=== PATIENT | female | born 1990 | race Caucasian/White ===

== ENCOUNTER 2023-01-19 17:11 | Emergency (ER) | payer OTHER, SELFPAY ==
[2023-01-19 17:34] VITALS: BP 136/90; PULSE 98; RESP 20; TEMP 36.7; O2SAT 97
[2023-01-19] MEDS: ONDANSETRON 2 MG/ML inj 4 MG IVP (19:54)
--- NOTE | 2023-01-19 20:00 | ED.GENADULT ---
HPI - General Adult General Chief complaint: Urogenital Problems, Female Stated complaint: Pelvic Pain Time Seen by Provider: 01/19/23 19:59 History of Present Illness HPI narrative: c/o lower ABD pain that started about an hour ago. She states that she has had this in the past and was prescribed control and was told it was hormonal. She didn't like taking it so she stopped because the pain is gone. had vasectomy so minimal chance of . She states that she started bleeding today and it could be here period. states that bleeding is light. 32-year-old woman presenting to the emergency department with complaint of intense lower abdominal pain beginning about an hour prior to presentation the Emergency Department. It sounds as though there has been some question raised of endometriosis in the past. Have been prescribed hormonal treatments in the past. Has not noticed that she was having dysuria. Has been having some light vaginal bleeding. Might be midcycle. Has been vomiting but this might be because of the pain. No fever. No diarrhea. Related Data Previous Rx's Medication Instructions Recorded hydrocodone 5 mg-acetaminophen 325 1 - 2 tab PO TID PRN pain #8 tabs 01/20/23 mg tablet ondansetron 4 mg disintegrating 4 mg PO Q4-6H PRN nausea and 01/20/23 tablet vomiting #12 tabs Allergies Allergy/AdvReac Type Severity Reaction Status Date / Time No Known Drug Allergies Allergy Verified 09/24/22 12:15 Review of Systems Status of ROS: Reports: 6 or more systems reviewed and unremarkable except as noted in History and below [facility] Social History Smoking Status: Never smoker Exam Narrative: Exam Narrative: Pleasant. Is restless in apparent marked discomfort. Oropharynx is sticky. Breathing easily though. Lungs appear to be clear. Heart in an elevated rate and regular rhythm. Abdomen is soft and quite tender through the low pelvis, by adnexal areas right maybe more than right. No peritoneal signs. Extremities well perfused without edema. Const: Vital Signs, click to edit/add: Vital Signs - 24 hr 01/19/23 17:34 Temperature 98.1 F Pulse Rate [Pulse Oximeter] 98 Respiratory Rate 20 Blood Pressure [Ri ght Upper Arm] 136/90 H Pulse Oximetry 97 Oxygen Delivery Me thod Room Air Documenting provider has reviewed patient's vital signs: yes Course Vital Signs Vital signs: Initial Vital Signs Temperature 98.1 F 01/19/23 17:34 Temperature Source Temporal Artery Scan 01/19/23 17:34 Pulse Rate 98 01/19/23 17:34 Pulse Rhythm Regular 01/19/23 17:34 Respiratory Rate 20 01/19/23 17:34 Blood Pressure 136/90 H 01/19/23 17:34 Blood Pressure Mean 105 01/19/23 17:34 Blood Pressure Position Sitting 01/19/23 17:34 Pulse Oximetry 97 01/19/23 17:34 Oxygen Delivery Method Room Air 01/19/23 17:34 Vital Signs Temperature 98.1 F 01/19/23 17:34 Pulse Rate 98 01/19/23 17:34 Respiratory Rate 20 01/19/23 17:34 Blood Pressure 136/90 H 01/19/23 17:34 Pulse Oximetry 97 01/19/23 17:34 Oxygen Delivery Method Room Air 01/19/23 17:34 Temperature 98.1 F 01/19/23 17:34 Pulse Rate 67 01/20/23 00:12 Respiratory Rate 20 01/19/23 17:34 Blood Pressure 116/68 01/20/23 00:12 Pulse Oximetry 99 01/20/23 00:12 Oxygen Delivery Method Room Air 01/20/23 00:12 Medical Decision Making MDM Narrative Medical decision making narrative: This certainly could be dysmenorrhea, ovarian torsion or cyst of some sort, extension of gastritis/enteritis. Appendicitis diverticulitis. Does not appear to be constipated. In particular she would like treatment for nausea. Would like to defer pain medication initially. Ordered Zofran. IV and fluids. Labs been requested. The cool move ahead though with an ultrasound as well given her history of what sounds to have been some endometriosis concerns in the past. Re-evaluation nausea is improved but she would appreciate some pain medication. Toradol and some morphine for more rapid action anticipation of ultrasound. Improved. Able to rest in the emergency department. Ultimately she felt comfortable enough to try to go home. Somewhat surprising finding of marked elevation in white count. INDICATION: Pelvic pain TECHNIQUE: Ultrasound pelvis transvaginal for better assessment or to better visualize the endometrium. Real-time sonographic images with spectral and color Doppler imaging of the ovaries were obtained. COMPARISON: None FINDINGS: Uterus: 8.1 x 4.4 x 5 cm. Normal echotexture of the myometrium. No masses. Endometrium: Transvaginal imaging was performed to better evaluate the endometrium. 7 mm in thickness. No sign of endometrial mass or fluid. Right ovary: 3.5 x 2.1 x 3.0 cm. No ovarian or adnexal masses. Normal arterial and venous blood flow. Left ovary: 4.5 x 2.7 x 3.3 cm. There is a complex lesion on the left ovary measuring 1.9 x 1.3 x 1.7 cm. Normal arterial and venous blood flow. Cul-de-sac: No significant free fluid. IMPRESSION: 1.9 cm complex lesion on the left ovary likely represents a hemorrhagic cyst. Remainder of the exam is normal. No evidence for ovarian torsion. On reexamination I do not think there is appendicitis here. Perhaps more gastritis with a setting of a hemorrhagic cyst explain more the pain. Will need to be rechecking this white count. See patient discharge plan Medical Records Medical records reviewed: Yes I reviewed the patient's medical records Lab Data Lab results reviewed: Yes I reviewed the patient's lab results Labs: Lab Results 01/19/23 01/19/23 01/19/23 Range/Units 19:37 19:37 19:37 WBC 19.51 H (4.50-11.00) K/uL RBC 5.14 (4.00-5.20) m/uL Hgb 14.8 (12.0-16.0) gm/dL Hct 42.8 (33.0-51.0) % MCV 83 (80-100) fL MCH 29 (26-34) pg MCHC 35 (32-36) gm/dL RDW Coeff of Raine 11.8 (11.5-15.5) % Plt Count 389 (140-440) K/uL Neut % (Auto) 84.9 H (42.0-72.0) % Lymph % (Auto) 10.9 L (20-44) % [place] % (Auto) 3.6 (0.0-11.0) % Eos % (Auto) 0.3 (0.0-7.0) % Baso % (Auto) 0.1 (0.0-3.0) % Neut # (Auto) 16.60 H (1.7-7.0) K/uL Lymph # (Auto) 2.10 (0.90-2.90) K/uL [place] # (Auto) 0.70 (0.00-0.90) K/UL Eos # (Auto) 0.10 (0.00-0.50) K/uL Baso # (Auto) 0.00 (0.00-0.30) K/uL Abs Immat Gran (auto) 0.00 (0.00-0.30) K/uL Imm/Tot Granulo (auto) 0.2 % Sodium 139 (135-149) mmol/L Potassium 3.7 (3.6-5.1) mmol/L Chloride 103 (96-114) mmol/L Carbon Dioxide 24 (20-32) mmol/L Anion Gap 12 (7-15) mEq/L BUN 18 (5-24) mg/dL Creatinine 0.5 (0.5-1.5) mg/dL Estimated GFR 128 ml/min Glucose 100 (60-115) mg/dL Calcium 10.2 (8.4-10.6) mg/dL Total Bilirubin 0.5 Cancelled (0.1-1.5) mg/dL Direct Bilirubin 0.1 Cancelled (0.0-0.5) mg/dL AST 31 (12-35) U/L ALT (4-35) U/L Alkaline Phosphatase (40-150) U/L C-Reactive Protein (0.5-1.0) mg/dL Total Protein (6.0-8.3) g/dL Albumin (3.3-5.0) g/dL Urine Color (Yellow) Urine Appearance (Clear) Urine pH (5.0-8.5) Ur Specific [place] (1.000-1.030) Urine Protein (Negative) Urine Glucose (UA) (Negative) Urine Ketones (Negative) Urine Blood (Negative) Urine Nitrite (Negative) Urine Bilirubin (Negative) Urine Urobilinogen (0.2-1.0) Ur Leukocyte Esterase (Negative) Urine RBC (0-2) Urine WBC (0-5) Ur Squamous Epith Cells (None-Few) Urine Bacteria (None) Urine Mucus (None) Urine HCG, Qual (Negative) 01/19/23 01/19/23 01/19/23 Range/Units 19:37 19:37 19:37 WBC (4.50-11.00) K/uL RBC (4.00-5.20) m/uL Hgb (12.0-16.0) gm/dL Hct (33.0-51.0) % MCV (80-100) fL MCH (26-34) pg MCHC (32-36) gm/dL RDW Coeff of Raine (11.5-15.5) % Plt Count (140-440) K/uL Neut % (Auto) (42.0-72.0) % Lymph % (Auto) (20-44) % [place] % (Auto) (0.0-11.0) % Eos % (Auto) (0.0-7.0) % Baso % (Auto) (0.0-3.0) % Neut # (Auto) (1.7-7.0) K/uL Lymph # (Auto) (0.90-2.90) K/uL [place] # (Auto) (0.00-0.90) K/UL Eos # (Auto) (0.00-0.50) K/uL Baso # (Auto) (0.00-0.30) K/uL Abs Immat Gran (auto) (0.00-0.30) K/uL Imm/Tot Granulo (auto) % Sodium (135-149) mmol/L Potassium (3.6-5.1) mmol/L Chloride (96-114) mmol/L Carbon Dioxide (20-32) mmol/L Anion Gap (7-15) mEq/L BUN (5-24) mg/dL Creatinine (0.5-1.5) mg/dL Estimated GFR ml/min Glucose (60-115) mg/dL Calcium (8.4-10.6) mg/dL Total Bilirubin (0.1-1.5) mg/dL Direct Bilirubin (0.0-0.5) mg/dL AST Cancelled (12-35) U/L ALT 26 Cancelled (4-35) U/L Alkaline Phosphatase 141 Cancelled (40-150) U/L C-Reactive Protein 1.2 H (0.5-1.0) mg/dL Total Protein 9.1 H (6.0-8.3) g/dL Albumin (3.3-5.0) g/dL Urine Color (Yellow) Urine Appearance (Clear) Urine pH (5.0-8.5) Ur Specific [place] (1.000-1.030) Urine Protein (Negative) Urine Glucose (UA) (Negative) Urine Ketones (Negative) Urine Blood (Negative) Urine Nitrite (Negative) Urine Bilirubin (Negative) Urine Urobilinogen (0.2-1.0) Ur Leukocyte Esterase (Negative) Urine RBC (0-2) Urine WBC (0-5) Ur Squamous Epith Cells (None-Few) Urine Bacteria (None) Urine Mucus (None) Urine HCG, Qual (Negative) 01/19/23 01/19/23 01/19/23 Range/Units 19:37 19:37 20:16 WBC (4.50-11.00) K/uL RBC (4.00-5.20) m/uL Hgb (12.0-16.0) gm/dL Hct (33.0-51.0) % MCV (80-100) fL MCH (26-34) pg MCHC (32-36) gm/dL RDW Coeff of Raine (11.5-15.5) % Plt Count (140-440) K/uL Neut % (Auto) (42.0-72.0) % Lymph % (Auto) (20-44) % [place] % (Auto) (0.0-11.0) % Eos % (Auto) (0.0-7.0) % Baso % (Auto) (0.0-3.0) % Neut # (Auto) (1.7-7.0) K/uL Lymph # (Auto) (0.90-2.90) K/uL [place] # (Auto) (0.00-0.90) K/UL Eos # (Auto) (0.00-0.50) K/uL Baso # (Auto) (0.00-0.30) K/uL Abs Immat Gran (auto) (0.00-0.30) K/uL Imm/Tot Granulo (auto) % Sodium (135-149) mmol/L Potassium (3.6-5.1) mmol/L Chloride (96-114) mmol/L Carbon Dioxide (20-32) mmol/L Anion Gap (7-15) mEq/L BUN (5-24) mg/dL Creatinine (0.5-1.5) mg/dL Estimated GFR ml/min Glucose (60-115) mg/dL Calcium (8.4-10.6) mg/dL Total Bilirubin (0.1-1.5) mg/dL Direct Bilirubin (0.0-0.5) mg/dL AST (12-35) U/L ALT (4-35) U/L Alkaline Phosphatase (40-150) U/L C-Reactive Protein (0.5-1.0) mg/dL Total Protein Cancelled (6.0-8.3) g/dL Albumin 5.1 H Cancelled (3.3-5.0) g/dL Urine Color Yellow (Yellow) Urine Appearance Clear (Clear) Urine pH 5.5 (5.0-8.5) Ur Specific [place] >= 1.030 (1.000-1.030) Urine Protein Negative (Negative) Urine Glucose (UA) Negative (Negative) Urine Ketones 4+ A (Negative) Urine Blood 3+ A (Negative) Urine Nitrite Negative (Negative) Urine Bilirubin Negative (Negative) Urine Urobilinogen 0.2 (0.2-1.0) Ur Leukocyte Esterase Negative (Negative) Urine RBC 10-25 A (0-2) Urine WBC 0-2 (0-5) Ur Squamous Epith Cells Few (None-Few) Urine Bacteria Few A (None) Urine Mucus Few A (None) Urine HCG, Qual (Negative) 01/19/23 Range/Units 22:20 WBC (4.50-11.00) K/uL RBC (4.00-5.20) m/uL Hgb (12.0-16.0) gm/dL Hct (33.0-51.0) % MCV (80-100) fL MCH (26-34) pg MCHC (32-36) gm/dL RDW Coeff of Raine (11.5-15.5) % Plt Count (140-440) K/uL Neut % (Auto) (42.0-72.0) % Lymph % (Auto) (20-44) % [place] % (Auto) (0.0-11.0) % Eos % (Auto) (0.0-7.0) % Baso % (Auto) (0.0-3.0) % Neut # (Auto) (1.7-7.0) K/uL Lymph # (Auto) (0.90-2.90) K/uL [place] # (Auto) (0.00-0.90) K/UL Eos # (Auto) (0.00-0.50) K/uL Baso # (Auto) (0.00-0.30) K/uL Abs Immat Gran (auto) (0.00-0.30) K/uL Imm/Tot Granulo (auto) % Sodium (135-149) mmol/L Potassium (3.6-5.1) mmol/L Chloride (96-114) mmol/L Carbon Dioxide (20-32) mmol/L Anion Gap (7-15) mEq/L BUN (5-24) mg/dL Creatinine (0.5-1.5) mg/dL Estimated GFR ml/min Glucose (60-115) mg/dL Calcium (8.4-10.6) mg/dL Total Bilirubin (0.1-1.5) mg/dL Direct Bilirubin (0.0-0.5) mg/dL AST (12-35) U/L ALT (4-35) U/L Alkaline Phosphatase (40-150) U/L C-Reactive Protein (0.5-1.0) mg/dL Total Protein (6.0-8.3) g/dL Albumin (3.3-5.0) g/dL Urine Color (Yellow) Urine Appearance (Clear) Urine pH (5.0-8.5) Ur Specific [place] (1.000-1.030) Urine Protein (Negative) Urine Glucose (UA) (Negative) Urine Ketones (Negative) Urine Blood (Negative) Urine Nitrite (Negative) Urine Bilirubin (Negative) Urine Urobilinogen (0.2-1.0) Ur Leukocyte Esterase (Negative) Urine RBC (0-2) Urine WBC (0-5) Ur Squamous Epith Cells (None-Few) Urine Bacteria (None) Urine Mucus (None) Urine HCG, Qual Negative (Negative) Discharge Plan Discharge Clinical Impression: Pelvic pain, Hemorrhagic cyst of left ovary, Acute neutrophilia Patient Disposition: Home w/ Parent or Adult Condition: Improved Additional Instructions: Focus on hydration. Return for marked increase in persistent pain, associated fever, persistent vomiting. Consider slow advance of diet over the next 36 hours with diluted juices and soup broths. Crackers, rice, toast. Can take up to 800 mg of ibuprofen or up to 1000 mg of acetaminophen per dose. Instead of the ibuprofen you might try up to 500 mg naproxen 2 times daily. Please follow-up in about a week to recheck labs to know that things have returned to normal. Prescriptions: New hydrocodone-acetaminophen 5-325 mg tablet 1 - 2 tab PO TID PRN (Reason: pain) Qty: 8 0RF ondansetron 4 mg tablet,disintegrating 4 mg PO Q4-6H PRN (Reason: nausea and vomiting) Qty: 12 0RF Follow Up/Referrals: Tenisha Lynch MD [Primary Care Provider] - Stand Alone Forms: [employer] Info Instructions
--- NOTE | 2023-01-19 20:19 | CRLHL7_ITS ---
For Patients: As a result of the Century Cures Act, medical imaging exams and procedure reports are released immediately into your electronic medical record. You may view this report before your referring provider. If you have questions, please contact your health care provider. INDICATION: Pelvic pain TECHNIQUE: Ultrasound pelvis transvaginal for better assessment or to better visualize the endometrium. Real-time sonographic images with spectral and color Doppler imaging of the ovaries were obtained. COMPARISON: None FINDINGS: Uterus: 8.1 x 4.4 x 5 cm. Normal echotexture of the myometrium. No masses. Endometrium: Transvaginal imaging was performed to better evaluate the endometrium. 7 mm in thickness. No sign of endometrial mass or fluid. Right ovary: 3.5 x 2.1 x 3.0 cm. No ovarian or adnexal masses. Normal arterial and venous blood flow. Left ovary: 4.5 x 2.7 x 3.3 cm. There is a complex lesion on the left ovary measuring 1.9 x 1.3 x 1.7 cm. Normal arterial and venous blood flow. Cul-de-sac: No significant free fluid. IMPRESSION: 1.9 cm complex lesion on the left ovary likely represents a hemorrhagic cyst. Remainder of the exam is normal. No evidence for ovarian torsion. Dictated by Eliza Torres MD @ 01/19/2023 9:40:52 PM (Electronically Signed)
[2023-01-19] MEDS: MORPHINE 4 MG/ML INJ IVP (20:28)
[2023-01-19] MEDS: KETOROLAC 30 MG/ML inj IVP (20:28)
[2023-01-19] MEDS: 0.9 % SODIUM CHLORIDE 1000 ml 1,000 ML 2000 ML IV (20:28)
[2023-01-19 20:31] LABS: Basophils Percent Auto 0.1 % (0.0-3.0); Eosinophils Percent Auto 0.3 % (0.0-7.0); Hematocrit 42.8 % (33.0-51.0); Hemoglobin* 14.8 gm/dL (12.0-16.0); Immature Granulocytes Pct Auto 0.2 %; Lymphocytes Percent Auto 10.9 % (20-44); Mean Corpuscular HGB Conc 35 gm/dL (32-36); Mean Corpuscular Hemoglobin 29 pg (26-34); Mean Corpuscular Volume 83 fL (80-100); Monocytes Percent Auto 3.6 % (0.0-11.0); Neutrophils Percent Auto 84.9 % (42.0-72.0); Platelet Count* 389 K/uL (140-440); RDW Coefficient of Variation % 11.8 % (11.5-15.5); Red Blood Count 5.14 m/uL (4.00-5.20); White Blood Count* 19.51 K/uL (4.50-11.00)
[2023-01-19 20:33] LABS: Slide Review Reflex No
[2023-01-19 20:53] LABS: Albumin* 5.1 g/dL (3.3-5.0); Chloride* 103 mmol/L (96-114)
[2023-01-19 20:54] LABS: Potassium* 3.7 mmol/L (3.6-5.1); Sodium* 139 mmol/L (135-149)
[2023-01-19 20:56] LABS: Creatinine* 0.5 mg/dL (0.5-1.5); Estimated Glomerular Filt Rate 128 ml/min
[2023-01-19 20:57] LABS: Alanine Aminotransferase* 26 U/L (4-35); Alkaline Phosphatase* 141 U/L (40-150); Anion Gap 12 mEq/L (7-15); Aspartate Amino Transferase* 31 U/L (12-35); Bilirubin Direct* 0.1 mg/dL (0.0-0.5); Bilirubin Total* 0.5 mg/dL (0.1-1.5); Blood Urea Nitrogen* 18 mg/dL (5-24); Calcium* 10.2 mg/dL (8.4-10.6); Carbon Dioxide* 24 mmol/L (20-32); Glucose* 100 mg/dL (60-115); Total Protein* 9.1 g/dL (6.0-8.3)
[2023-01-19 20:59] LABS: C Reactive Protein* 1.2 mg/dL (0.5-1.0)
[2023-01-19 22:40] LABS: Appearance Urine Clear (Clear); Bacteria Urine Few; Bilirubin Urine Negative (Negative); Blood Urine 3+ (Negative); Color Urine Yellow (Yellow); Glucose Urine Negative (Negative); Ketones Urine 4+ (Negative); Leukocyte Esterase Urine Negative (Negative); Mucus Urine Few; Nitrite Urine Negative (Negative); Protein Urine Negative (Negative); Specific Gravity Urine >= 1.030 (1.000-1.030); Squamous Epithelial Cell Urine Few (None-Few); Urobilinogen Urine 0.2 (0.2-1.0); WBC Urine 0-2 (0-5); pH Urine 5.5 (5.0-8.5)
[2023-01-20 00:12] VITALS: BP 116/68; PULSE 67; O2SAT 99
[2023-01-20 00:26] LABS: Ur HCG Qualitative* Negative (Negative)
== END 2023-01-20 00:44 | disposition home or self-care (01) ==
PROVIDERS: Emergency Provider Family Medicine; PCP Family Medicine
DX: N83.202 Unspecified ovarian cyst, left side (principal); D72.828 Other elevated white blood cell count
CPT/HCPCS: 36415; 76830; 80048; 80076; 81001; 81003; 81025; 85025; 86140; 87086; 93976; 96374; 96375; 99284; J1885; J2270; J2405; J7030